=== PATIENT | male | born 1980 | race Caucasian/White ===

== ENCOUNTER 2020-07-02 11:38 | Emergency (ER) | payer SELFPAY ==
[~2020-07-02] VITALS: Ht 170.1 cm; Wt 84.2 kg
--- NOTE | 2020-07-02 12:17 | ED Upper Extremity ---
General Chief Complaint: Upper Extremity Stated Complaint: RT SHOULDER PAIN Source: patient History of Present Illness Date Seen by Provider: Jul 02, 2020 Time Seen by Provider: 12:08 Initial Comments 40-year-old male presenting with complaints of forearm pain and right shoulder pain. He states this is been going on for the last week and was worse this morning. He has tenderness to palpation over the right side of his neck and shoulder around the trapezius muscles. He also has been having soreness in his forearms. 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 He does heavy lifting and lifting of windows that are an awkward size and shape. He was having concerned that he may be slipped on his arm or shoulder wrong. He denies any numbness or tingling in his arms or hands. Has shoulder pain especially was worse this morning but states it is better now. He has not taken any medication for it but states he has started taking vitamins this week to try and help with the symptoms. Allergies and Home Medications Allergies Coded Allergies: No Known Drug Allergies (Unverified , 07/02/20) Home Medications Baclofen 10 Mg Tablet, 10 MG PO BID PRN for MUSCLE SPASMS Prescribed by: LIZET BAUM on 07/02/20 1256 Ibuprofen 800 Mg Tablet, 800 MG PO Q8H PRN for pain/inflammation Prescribed by: LIZET BAUM on 07/02/20 1256 Patient Home Medication List Home Medication List Reviewed: Yes Review of Systems Constitutional: No chills, No fever EENTM: no symptoms reported Respiratory: no symptoms reported Cardiovascular: no symptoms reported Gastrointestinal: no symptoms reported Genitourinary: no symptoms reported Musculoskeletal: muscle pain (Right-sided trapezius muscle pain with tenderness and spasms), neck pain (Right-sided neck pain extending out over the shoulder along the trapezius muscle) Skin: no symptoms reported Psychiatric/Neurological: Denies Numbness, Denies Paresthesia Past Mpbwmsm-Udvuwd-Pjrlaf Hx Past Med/Social Hx: Reviewed Nursing Past Med/Soc Hx Past Medical History Surgeries: No Respiratory: No Cardiac: No Neurological: No Genitourinary: No Gastrointestinal: No Musculoskeletal: No Endocrine: No HEENT: No Cancer: No Integumentary: No Physical Exam Vital Signs Vital Signs - First Documented 07/02/20 11:43 Temp 36.0 Pulse 68 Resp 18 B/P (MAP) 106/70 (82) Pulse Ox 99 O2 Delivery Room Air Capillary Refill : Height, Weight, BMI Height: '" Weight: lbs. oz. kg; BMI Method: General Appearance: WD/WN, no apparent distress HEENT: PERRL/EOMI, pharynx normal Neck: full range of motion, supple, tender lateral (Right-sided muscles extending out over the trapezius muscle to the shoulder) Cardiovascular: normal peripheral pulses, regular rate, rhythm Shoulder: no evidence of injury, normal ROM; No deformity, No ecchymosis; soft tissue tenderness (Muscle tenderness with spasms along the right trapezius from the neck out to the tip of the shoulder) Elbow/Forearm: normal inspection, non-tender, no evidence of injury, normal ROM Wrist: Yes normal inspection, Yes non-tender, Yes no evidence of injury, Yes normal ROM Hand: normal inspection, non-tender, no evidence of injury, normal ROM Neurologic/Tendon: normal sensation, normal motor functions, normal tendon functions 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 Will try treating with muscle relaxer and anti-inflammatories. Counseled on stretching and establishing care with a primary provider. May need physical therapy if not i mproving. Could also try alternating ice and heat. Departure Impression Primary Impression: Strain of right trapezius muscle Qualified Codes: S46.811A - Strain of other muscles, fascia and tendons at shoulder and upper arm level, right arm, initial encounter Additional Impression: Repetitive strain injury of both forearms Disposition: 01 HOME, SELF-CARE Condition: Stable Departure-Patient Inst. Decision time for Depature: 12:52 Referrals: NO,LOCAL PHYSICIAN (PCP) Primary Care Physician [facility] Patient Instructions: Cervical Muscle Strain (DC), Forearm and Wrist Fractures ED, Muscle Strain ED, Neck Stretches, Table Stretches for the Shoulder Add. Discharge Instructions: Follow up with clinic and establish with a primary provider for continued care. [facility] can be reached at [phone] You may need physical therapy or other testing if not improving. Try alternating ice and heat to help with the pain and inflammation. Perform stretches to help with muscle strain and inflammation. Take anti-inflammatory medicine to help with pain and inflammation in muscles. Use muscle relaxer to help with spasms and inflammation to help you rest at night. All discharge instructions reviewed with patient and/or family. Voiced understanding. Scripts Ibuprofen (Ibuprofen) 800 Mg Tablet 800 MG PO Q8H PRN for pain/inflammation for 10 Days, #30 TAB 0 Refills Prov: LIZET BAUM MD 07/02/20 Baclofen (Baclofen) 10 Mg Tablet 10 MG PO BID PRN for MUSCLE SPASMS for 10 Days, #20 TAB 0 Refills Prov: LIZET BAUM MD 07/02/20 Work/School Note: Work Release Form Date Seen in the Emergency Department: Jul 02, 2020 Return to Work: Jul 06, 2020 Restrictions: No Restrictions Images Torso/Trunk 1 - Muscle Spams, Tenderness (Tenderness to palpation along the right side of the neck and upper part of his trapezius extending out to the tip of the shoulder) LIZET BAUM MD Jul 02, 2020 12:17
[2020-07-02] MEDS ORDERED: BACL10TA PO (12:56)
[2020-07-02] MEDS ORDERED: IBUP-1780 PO (12:56)
[2020-07-02 13:00] VITALS: BP 110/68
== END 2020-07-02 13:00 | disposition home or self-care (01) ==
LOC: ER FS 11:41
DX: S46.811A Strain of other muscles, fascia and tendons at shoulder and upper arm level, right arm, initial encounter (principal); S56.911A Strain of unspecified muscles, fascia and tendons at forearm level, right arm, initial encounter; S56.912A Strain of unspecified muscles, fascia and tendons at forearm level, left arm, initial encounter; M54.2 Cervicalgia; X58.XXXA Exposure to other specified factors, initial encounter
CPT/HCPCS: 99282

== ENCOUNTER 2020-09-14 03:57 | Emergency (ER) | payer SELFPAY ==
[~2020-09-14 03:57] MED LIST: BACL10TA PO; IBUP-1780 PO
[2020-09-14] MEDS ORDERED: AUGMENTIN 875 MG TAB (AMOXICILLIN/CLAVULANATE) PO STA (04:08)
[2020-09-14] MEDS ORDERED: IBUPROFEN 800 MG (MOTRIN) TAB PO STA (04:08)
[2020-09-14] MEDS ORDERED: IBUP-1780 PO (04:14)
[2020-09-14] MEDS ORDERED: TRM50T PO (04:14)
[2020-09-14] MEDS ORDERED: AMOX1TAB12 PO (04:14)
--- NOTE | 2020-09-14 04:15 | ED EENT ---
History of Present Illness General Chief Complaint: Dental Problems/Pain Stated Complaint: DENTAL PAIN Nursing Triage Note: Pt complaining of upper and lower dental pain on the left side that started a couple of days ago Source: patient History of Present Illness Date Seen by Provider: September 14, 2020 Time Seen by Provider: 04:01 Initial Comments 40 yo male presenting with complaints of facial swelling and pain to left side of face. He has pain to teeth on left side of mouth, primarily on the upper part of mouth and he felt this started on Monday. He has developed swelling and increased pain to left side of face and jaw. He has not had a fever but has had pain despite ibuprofen. He has not seen a dentist about these teeth before according to the patient. This morning he had not been able to sleep all night and came in so he could get a work note and be able to start medicine for his face and teeth. He reports his was going to call to get him in with a dentist. He has not had a fever or chills. He has also tried drinking alcohol over the weekend to help with his pain. Timing/Duration: abrupt Severity: severe Location: mouth, facial, dental Prearrival Treatment: over the counter meds Associated Symptoms: No change in hearing, No cough, No drooling, No ear drainage; facial pain/swelling (left); No fever, No malaise, No nasal congestion/drainage, No poor fluid intake, No poor solids intake, No sinus infection, No sore throat; tooth pain; No voice change Allergies and Home Medications Allergies Coded Allergies: No Known Drug Allergies (Unverified , 07/02/20) Home Medications Amoxicillin/Potassium Clav 1 Each Tablet, 1 EACH PO BID Prescribed by: LIZET BAUM on 09/14/20 0414 Baclofen 10 Mg Tablet, 10 MG PO BID PRN for MUSCLE SPASMS Prescribed by: LIZET BAUM on 07/02/20 1256 Ibuprofen 800 Mg Tablet, 800 MG PO Q8H PRN for pain/inflammation Prescribed by: LIZET BAUM on 09/14/20 0414 Tramadol HCl 50 Mg Tablet, 50 MG PO Q6H PRN for PAIN Prescribed by: LIZET BAUM on 09/14/20 0415 Patient Home Medication List Home Medication List Reviewed: Yes Review of Systems Review of Systems Constitutional: No chills, No fever Eyes: No Symptoms Reported Ears: No Symptoms Reported Nose: no symptoms reported Mouth: see HPI, pain, swelling (gum swelling); denies purulent discharge, denies serosanguinous discharge Throat: no symptoms reported Respiratory: no symptoms reported Cardiovascular: no symptoms reported Gastrointestinal: no symptoms reported Musculoskeletal: no symptoms reported Skin: no symptoms reported Neurological: Headache (left side of face and jaw) Hematologic/Lymphatic: No Symptoms Reported Past Jclvuas-Bffuut-Dhohjy Hx Past Med/Social Hx: Reviewed Nursing Past Med/Soc Hx Patient Social History Alcohol Use: Rarely Uses Number of Drinks Today: AA Alcohol Beverage of Choice: Beer Recent Infectious Disease Expo: No Recent Hopitalizations: No Immunizations Up To Date Tetanus Booster (TDap): Unknown Seasonal Allergies Seasonal Allergies: No Past Medical History Surgeries: No Respiratory: No Asthma Cardiac: No Neurological: No Genitourinary: No Gastrointestinal: No Musculoskeletal: No Endocrine: No HEENT: No Cancer: No Psychosocial: No Integumentary: No Blood Disorders: No Physical Exam Vital Signs Vital Signs - First Documented 09/14/20 04:02 Temp 36.5 Pulse 76 Resp 18 B/P (MAP) 124/79 (94) Pulse Ox 97 O2 Delivery Room Air Height, Weight, BMI Height: '" Weight: lbs. oz. kg; 29.00 BMI Method: General Appearance: WD/WN, no apparent distress Eyes: bilateral eye PERRL, bilateral eye EOMI Nose: normal inspection Mouth/Throat: pharynx normal, dental tenderness (tender to palpation and movement of teeth on left side maxillary area with a tooth having a large cavity or fracture to it. surrounding gum swelling present without drainage. widespread dental decay and several missing teeth), other (swelling and tenderness to left face/cheek/mandible) Neck: full range of motion, supple, lymphadenopathy (L) Cardiovascular: normal peripheral pulses, regular rate, rhythm Respiratory: chest non-tender, lungs clear, normal breath sounds Neurologic/Psychiatric: alert, oriented x 3 Skin: normal color, warm/dry Progress/Results/Core Measures Results/Orders My Orders Orders - LIEZT BAUM MD Amoxicillin/Clavulanate Tablet (Augmenti (09/14/20 04:08) Tramadol Tablet (Ultram Tablet) (09/14/20 04:08) Ibuprofen Tablet (Motrin Tablet) (09/14/20 04:08) Vital Signs/I&O 09/14/20 04:02 Temp 36.5 Pulse 76 Resp 18 B/P (MAP) 124/79 (94) Pulse Ox 97 O2 Delivery Room Air Blood Pressure Mean: 94 Progress Progress Note : Progress Note Advised to start with IM antibiotic due to his facial swelling and pain but pt refused. Will take oral medicine. Give Augmentin, Tramadol, Ibuprofen. Counseled to follow up with dentist as soon as possible for definitive care. Departure Impression Primary Impression: Pain due to dental caries Additional Impressions: Dental abscess Left facial swelling Disposition: HOME, SELF-CARE Condition: Stable Departure-Patient Inst. Decision time for Depature: 04:11 Referrals: NO,LOCAL PHYSICIAN (PCP) Primary Care Physician [facility] Patient Instructions: Dental Pain ED, Tooth Abscess (DC) Add. Discharge Instructions: Take the antibiotics until they are all gone to make sure the infection gets completely treated. Use the Ibuprofen to help with inflammation and swelling and Tramadol for severe pain. Call dentist of your choice to arrange follow up as soon as possible. You could check with the dental clinic for [facility] by calling [phone] and asking for Dental clinic All discharge instructions reviewed with patient and/or family. Voiced understanding. Scripts Tramadol HCl (Tramadol HCl) 50 Mg Tablet 50 MG PO Q6H PRN for PAIN for 3 Days, #12 TAB 0 Refills Prov: LIZET BAUM MD 09/14/20 Amoxicillin/Potassium Clav (Amox Tr-K Clv 875-125 mg Tab) 1 Each Tablet 1 EACH PO BID for dental abscess for 10 Days, #20 TAB 0 Refills Prov: LIZET BAUM MD 09/14/20 Ibuprofen (Ibuprofen) 800 Mg Tablet 800 MG PO Q8H PRN for pain/inflammation for 10 Days, #30 TAB 0 Refills Prov: LIZET BAUM MD 09/14/20 Work/School Note: Work Release Form Date Seen in the Emergency Department: September 14, 2020 Return to Work: September 16, 2020 Restrictions: No Restrictions Images Mouth/Nose 1 - Caries, Fracture Tooth, Swelling, Tenderness Progress Maxillary tooth with large dental cavity present and surrounding gum swelling. Widespread dental decay and several missing teeth LIZET BAUM MD September 14, 2020 04:15
[2020-09-14 04:16] VITALS: BP 124/79
== END 2020-09-14 04:18 | disposition home or self-care (01) ==
LOC: EDUNIT# 03:57 → ER FS 04:00
DX: K02.9 Dental caries, unspecified (principal); K04.7 Periapical abscess without sinus; R22.0 Localized swelling, mass and lump, head; J45.909 Unspecified asthma, uncomplicated
CPT/HCPCS: 99283

== ENCOUNTER 2021-05-13 10:01 | Emergency (ER) | payer SELFPAY ==
[~2021-05-13] VITALS: Ht 172 cm; Wt 85.0 kg
[~2021-05-13 10:01] MED LIST changes: +AMOX1TAB12 PO; +TRM50T PO
[2021-05-13 10:09] VITALS: BP 118/64
[2021-05-13] MEDS ORDERED: ACETAMINOPHEN 325 MG TABLET PO ONE (10:30)
[2021-05-13] MEDS ORDERED: NS IV 1000 ML 1,000 ML IV SCH (10:30)
--- NOTE | 2021-05-13 10:36 | ED General ---
General Chief Complaint: COVID19 Suspect/Confirmed Stated Complaint: COUGH; COVID+ Nursing Triage Note: Patient has presented to ER with cc of postive for covid. Patient reports that he just tested positive this morning. He has a cough, sinus congestion, body aches, headache, neck pain. His symptoms started 2 days ago. Source of Information: Patient History of Present Illness Date Seen by Provider: May 13, 2021 Time Seen by Provider: 10:04 Initial Comments 41-year-old male presenting from urgent care where he was diagnosed with Covid. He states that he has had cough, sinus congestion, generalized body aches, headaches, neck pain and dizziness. He states his symptoms started 2 to 3 days ago. He notes that his was sick before he was now both his daughter and himself for seconds well. He went to urgent care this morning to be tested for Covid and it came back positive. He has not taken anything for fever, body aches, congestion today. He denies having any nausea, vomiting, diarrhea. He has no pain with urination. He denies any past medical problems and does not take any prescription medications. He denies having a primary care provider. He also states that he has no known allergies to any medications. He is not vaccinated against Covid Timing/Duration: 2-3 Days Severity: Moderate Modifying Factors: worse with Movement (dizzy and light headed with changing positions) Associated Systoms: No Chest Pain; Cough; No Diaphoresis; Fever/Chills, Headaches (sinus), Loss of Appetite, Malaise; No Nausea/Vomiting, No Rash, No Seizure; Shortness of Air; No Syncope Allergies and Home Medications Allergies Coded Allergies: No Known Drug Allergies (Unverified , 07/02/20) Patient Home Medication List Home Medication List Reviewed: Yes Amoxicillin/Potassium Clav (Amox Tr-K Clv 875-125 mg Tab) 1 Each Tablet, 1 EACH PO BID Prescribed by: LIZET BAUM on 09/14/20 0414 Baclofen (Baclofen) 10 Mg Tablet, 10 MG PO BID PRN for MUSCLE SPASMS Prescribed by: LIZET BAUM on 07/02/20 125 Ibuprofen (Ibuprofen) 800 Mg Tablet, 800 MG PO Q8H PRN for pain/inflammation Prescribed by: LIZET BAUM on 09/14/20 0414 Tramadol HCl (Tramadol HCl) 50 Mg Tablet, 50 MG PO Q6H PRN for PAIN Prescribed by: LIZET BAUM on 09/14/20 0415 Review of Systems Review of Systems Constitutional: chills, fever, malaise EENTM: nose congestion; No epistaxis Respiratory: cough, short of breath; No stridor, No wheezing Cardiovascular: No chest pain Gastrointestinal: No abdominal pain, No diarrhea; loss of appetite; No nausea, No vomiting Genitourinary: No dysuria, No frequency, No pain Musculoskeletal: muscle pain (generalized body aches and joint pains) Skin: No rash Psychiatric/Neurological: See HPI Hematologic/Lymphatic: Denies Blood Clots Past Sdvbcho-Bpenkx-Humxzy Hx Patient Social History Tobacco Use?: No Use of E-Cig and/or Vaping dev: No Substance use?: No Alcohol Use?: No Immunizations Up To Date Tetanus Booster (TDap): Unknown Seasonal Allergies Seasonal Allergies: No Past Medical History Surgery/Hospitalization HX: Covid + May 2021 Surgeries: No Respiratory: No Asthma Cardiac: No Neurological: No Genitourinary: No Gastrointestinal: No Musculoskeletal: No Endocrine: No HEENT: No Cancer: No Psychosocial: No Integumentary: No Blood Disorders: No Physical Exam Vital Signs Vital Signs - First Documented 05/13/21 10:09 Temp 37.8 Pulse 103 Resp 16 B/P (MAP) 118/64 (82) O2 Delivery Room Air Capillary Refill : Height, Weight, BMI Height: '" Weight: lbs. oz. kg; 28.00 BMI Method: General Appearance: No Apparent Distress, WD/WN HEENT: PERRL/EOMI, Pharynx Normal, Moist Mucous Membranes Neck: Full Range of Motion, Normal Inspection, Supple, Tender Lateral (mild tenderness to muscles in cervical nneck) Respiratory: Chest Non Tender, Lungs Clear, Normal Breath Sounds, No Accessory Muscle Use, No Respiratory Distress Cardiovascular: No Murmur, Normal Peripheral Pulses, Tachycardia Gastrointestinal: Normal Bowel Sounds, No Pulsatile Mass, Non Tender, Soft Rectal: Deferred Extremity: Normal Capillary Refill, Normal Inspection, No Calf Tenderness, No Pedal Edema Neurologic/Psychiatric: Alert, Oriented x3, multifocal lens inspector II-XII Norm as Tested Skin: Normal Color, Warm/Dry Focused Exam Lactate Level 05/13/21 10:25: Lactic Acid Level 1.24 Lactic Acid Level Laboratory Tests Test 1/6/22 10:25 Lactic Acid Level 1.24 MMOL/L (0.50-2.00) Progress/Results/Core Measures Suspected Sepsis SIRS Temperature: Pulse: 103 Respiratory Rate: 16 Laboratory Tests 05/13/21 10:25: White Blood Count 6.1 Blood Pressure 118 /64 Mean: 82 05/13/21 10:25: Lactic Acid Level 1.24 Laboratory Tests 05/13/21 10:25: Creatinine 1.00, INR Comment 1.0, Platelet Count 235, Total Bilirubin 0.7 Results/Orders Lab Results Laboratory Tests Test 05/13/21 10:25 05/13/21 10:27 Range/Units White Blood Count 6.1 4.3-11.0 10^3/uL Red Blood Count 4.64 4.30-5.52 10^6/uL Hemoglobin 13.3 13.3-17.7 g/dL Hematocrit 40 40-54 % Mean Corpuscular Volume 85 80-99 fL Mean Corpuscular Hemoglobin 29 25-34 pg Mean Corpuscular Hemoglobin Concent 34 32-36 g/dL Red Cell Distribution Width 11.9 10.0-14.5 % Platelet Count 235 130-400 10^3/uL Mean Platelet Volume 9.5 9.0-12.2 fL Immature Granulocyte % (Auto) 0 % Neutrophils (%) (Auto) 71 42-75 % Lymphocytes (%) (Auto) 12 12-44 % Monocytes (%) (Auto) 17 H 0-12 % Eosinophils (%) (Auto) 0 0-10 % Basophils (%) (Auto) 0 0-10 % Neutrophils # (Auto) 4.3 1.8-7.8 X 10^3 Lymphocytes # (Auto) 0.7 L 1.0-4.0 X 10^3 Monocytes # (Auto) 1.0 0.0-1.0 X 10^3 Eosinophils # (Auto) 0.0 0.0-0.3 10^3/uL Basophils # (Auto) 0.0 0.0-0.1 10^3/uL Immature Granulocyte # (Auto) 0.0 0.0-0.1 10^3/uL Prothrombin Time 13.9 12.2-14.7 SEC INR Comment 1.0 0.8-1.4 Activated Partial Thromboplast Time 32 24-35 SEC Sodium Level 137 135-145 MMOL/L Potassium Level 3.7 3.6-5.0 MMOL/L Chloride Level 104 98-107 MMOL/L Carbon Dioxide Level 23 21-32 MMOL/L Anion Gap 10 5-14 MMOL/L Blood Urea Nitrogen 12 7-18 MG/DL Creatinine 1.00 0.60-1.30 MG/DL Estimat Glomerular Filtration Rate 82 BUN/Creatinine Ratio 12 Glucose Level 125 H 70-105 MG/DL Lactic Acid Level 1.24 0.50-2.00 MMOL/L Calcium Level 8.4 L 8.5-10.1 MG/DL Corrected Calcium 8.5 8.5-10.1 MG/DL Total Bilirubin 0.7 0.1-1.0 MG/DL Aspartate Amino Transf (AST/SGOT) 17 5-34 U/L Alanine Aminotransferase (ALT/SGPT) 12 0-55 U/L Alkaline Phosphatase 79 40-136 U/L Troponin I < 0.30 <0.30 NG/ML C-Reactive Protein 10.19 H <0.50 MG/DL Total Protein 7.3 6.4-8.2 GM/DL Albumin 3.9 3.2-4.5 GM/DL Urine Color DK YELLOW Urine Clarity CLEAR Urine pH 6.5 5-9 Urine Specific [place] 1.025 H 1.016-1.022 Urine Protein 1+ H NEGATIVE Urine Glucose (UA) NEGATIVE NEGATIVE Urine Ketones 1+ H NEGATIVE Urine Nitrite NEGATIVE NEGATIVE Urine Bilirubin NEGATIVE NEGATIVE Urine Urobilinogen 2.0 < = 1.0 MG/DL Urine Leukocyte Esterase NEGATIVE NEGATIVE Urine RBC (Auto) NEGATIVE NEGATIVE Urine RBC 0-2 /HPF Urine WBC 0-2 /HPF Urine Squamous Epithelial Cells NONE /HPF Urine Crystals NONE /LPF Urine Bacteria TRACE /HPF Urine Casts NONE /LPF Urine Mucus MODERATE H /LPF Urine Culture Indicated NO My Orders Orders - LIZET BAUM MD Monitor-Rhythm Ecg Trace Only (05/13/21 10:20) Ed Iv/Invasive Line Start (05/13/21 10:20) Cbc With Automated Diff (05/13/21 10:20) Comprehensive Metabolic Panel (05/13/21 10:20) Crp Fs (05/13/21 10:20) Troponin I Fs (05/13/21 10:20) Protime With Inr (05/13/21 10:20) Partial Thromboplastin Time (05/13/21 10:20) Ekg Tracing (05/13/21 10:20) Ns Iv 1000 Ml (Sodium Chloride 0.9%) (05/13/21 10:30) Acetaminophen Tablet/Caplet (Tylenol T (05/13/21 10:30) Ua Culture If Indicated (05/13/21 10:20) Chest 1 View Ap/Pa Only (05/13/21 10:20) Blood Culture (05/13/21 10:22) Lactic Acid Analyzer (05/13/21 10:22) Medications Given in ED Current Medications Medications Dose Ordered Sig/Joselin Route Start Time Stop Time Status Last Admin Dose Admin Acetaminophen 650 mg ONCE ONCE PO 05/13/21 10:30 05/13/21 10:31 DC 05/13/21 10:28 650 MG Vital Signs/I&O 05/13/21 10:09 Temp 37.8 Pulse 103 Resp 16 B/P (MAP) 118/64 (82) O2 Delivery Room Air Capillary Refill : Blood Pressure Mean: 82 Progress Note #1: Progress Note Patient presents with oxygen saturation of 100%. His heart rate is slightly over 100 so he likely is slightly dehydrated. He appears stable overall but could likely benefit from some extra hydration. Will give a liter of normal saline for hydration. Acetaminophen 650 mg p.o. for his slightly elevated temperature 37.8. Check basic labs including blood cultures and lactic acid. Chest x-ray to evaluate for possible pneumonia or infiltrate. Urinalysis to look at hydration status as well. Differential diagnosis includes Covid pneumonia, atypical bacterial pneumonia, dehydration, electrolyte imbalance Progress Note #2: Time: 11:16 Progress Note Electrocardiogram does not show any acute ischemia. The chest x-ray is clear without infiltrate. The labs show no elevation in the white blood cell count. The chemistry has no acute significant abnormality but he does have an elevated CRP to go along with the Covid infection and lactic acid is negative. The heart rate did improve some with hydration. Will reassure patient and encouraged him to stay well-hydrated and treat his symptoms. At this point with no sign of pneumonia on his chest x-ray will defer using a Z-Lauro or antibiotics. Given information about the [facility] clinic for him to try and establish care with a local provider. Urine was slightly concentrated with specific gravity of 1.025. No infection. ECG Initial ECG Impression Date: May 13, 2021 Initial ECG Impression Time: 10:22 Initial ECG Rate: 101 Initial ECG Rhythm: S.Tach Initial ECG Comparisson: No Previous ECG Available Comment Sinus tachycardia with a heart rate of 101 bpm. HI interval [address] elevation. QT interval 312 ms with a QTc interval 405 ms. There is no prior tracing available for comparison. Diagnostic Imaging Diagonstic Imaging: Xray Plain Films/CT/US/NM/MRI: chest Comments [facility], [place] NAME: EPIFANIO DEL CID [facility] REC#: [id number] PT STATUS: REG ER : 1980 PHYSICIAN: LIZET BAUM MD ADMIT DATE: 05/13/21/ER FS Signed Date of Exam:05/13/21 CHEST 1 VIEW AP/PA ONLY EXAMINATION: Chest 1 view HISTORY: COVID +, cough, light headed COMPARISON: None available. FINDINGS: Heart size and pulmonary vasculature are normal. The lungs are clear without consolidation, pleural effusion, or pneumothorax. The osseous structures are intact. IMPRESSION: 1. No acute radiographic abnormality in the chest. Dictated by: Dictated on workstation # [id number] Dict: 05/13/21 1043 Trans: 05/13/21 1113 [id number] Interpreted by: TESHA OLIVEIRA DO Electronically signed by: TESHA OLIVEIRA DO 05/13/21 1113 Reviewed: Reviewed by In Departure Impression Primary Impression: Upper respiratory tract infection due to COVID-19 virus Additional Impression: Dehydration Disposition: 01 HOME, SELF-CARE Condition: Stable Departure-Patient Inst. Decision time for Depature: 11:18 Referrals: NO,LOCAL PHYSICIAN (PCP) Primary Care Physician [facility] Patient Instructions: Dehydration, Adult ED, COVID-19 ED Add. Discharge Instructions: Try to stay well-hydrated and drink more fluids. Quarantine for the next 10 days and isolate to help prevent spreading the infection. You could establish care with the local clinic and get a local provider. One of the options would be to call the [facility] clinic at [phone] and let them know you needed to establish care with a provider in the get you set up with someone. All discharge instructions reviewed with patient and/or family. Voiced understanding. Work/School Note: Work Release Form Date Seen in the Emergency Department: May 13, 2021 Return to Work: May 24, 2021 Restrictions: No Restrictions Other Restrictions Listed Below: Return to work after Quarantine for LIZET Cleary MD May 13, 2021 10:36
[2021-05-13 10:46] LABS: BASOPHILS % (AUTO) 0 % (0-10); EOSINOPHILS % (AUTO) 0 % (0-10); HEMATOCRIT 40 % (40-54); HEMOGLOBIN 13.3 g/dL (13.3-17.7); LYMPHOCYTES # (AUTO) 0.7 X 10^3 (1.0-4.0); LYMPHOCYTES % (AUTO) 12 % (12-44); MEAN CORPUSCULAR HEMOGLOBIN 29 pg (25-34); MEAN CORPUSCULAR HGB CONC 34 g/dL (32-36); MEAN CORPUSCULAR VOLUME 85 fL (80-99); MEAN PLATELET VOLUME 9.5 fL (9.0-12.2); MONOCYTES % (AUTO) 17 % (0-12); NEUTROPHILS # (AUTO) 4.3 X 10^3 (1.8-7.8); NEUTROPHILS % (AUTO) 71 % (42-75); PLATELET COUNT 235 10^3/uL (130-400); WHITE BLOOD COUNT 6.1 10^3/uL (4.3-11.0)
[2021-05-13 10:51] LABS: PROTHROMBIN TIME PATIENT 13.9 SEC (12.2-14.7)
--- NOTE | 2021-05-13 10:54 | Diagnostic Imaging Report ---
EXAMINATION: Chest 1 view HISTORY: COVID +, cough, light headed COMPARISON: None available. FINDINGS: Heart size and pulmonary vasculature are normal. The lungs are clear without consolidation, pleural effusion, or pneumothorax. The osseous structures are intact. IMPRESSION: 1. No acute radiographic abnormality in the chest. Dictated by: Dictated on workstation # [id number]
[2021-05-13 11:04] LABS: CHLORIDE 104 MMOL/L (98-107); POTASSIUM 3.7 MMOL/L (3.6-5.0); SODIUM 137 MMOL/L (135-145)
[2021-05-13 11:05] LABS: ALANINE AMINOTRANSFERASE 12 U/L (0-55); ALBUMIN 3.9 GM/DL (3.2-4.5); ALKALINE PHOSPHATASE 79 U/L (40-136); BILIRUBIN,TOTAL 0.7 MG/DL (0.1-1.0); BUN/CREATININE RATIO 12; CALCIUM 8.4 MG/DL (8.5-10.1); CARBON DIOXIDE 23 MMOL/L (21-32); GFR ESTIMATED 82; GLUCOSE 125 MG/DL (70-105); TOTAL PROTEIN 7.3 GM/DL (6.4-8.2)
[2021-05-13 11:18] LABS: BILIRUBIN,URINE NEGATIVE (NEGATIVE); CLARITY,URINE CLEAR; GLUCOSE, URINE (UA) NEGATIVE (NEGATIVE); KETONES,URINE 1+ (NEGATIVE); LEUKOCYTE ESTERASE ,URINE NEGATIVE (NEGATIVE); NITRITE,URINE NEGATIVE (NEGATIVE); PH,URINE 6.5 (5-9); PROTEIN,URINE 1+ (NEGATIVE)
[2021-05-13 11:26] LABS: BACTERIA,URINE TRACE /HPF; COLOR,URINE DK YELLOW; RBC,URINE 0-2 /HPF; WBC,URINE 0-2 /HPF
== END 2021-05-13 11:35 | disposition home or self-care (01) ==
LOC: EDUNIT# 10:01 → ER FS 10:02
DX: J06.9 Acute upper respiratory infection, unspecified (principal); E86.0 Dehydration; J45.909 Unspecified asthma, uncomplicated
CPT/HCPCS: 36415; 71045; 80053; 81000; 83605; 84484; 85025; 85610; 85730; 86141; 87040; 93005